=== PATIENT | female | born 1965 | race American Indian/Alaskan Native ===

== ENCOUNTER 2017-10-24 08:32 | Day surgery (SDC) | payer BC ==
[2017-10-23 11:36] VITALS: BMI 21.4
--- NOTE | 2017-10-24 09:32 | CP.SDSHP ---
Same Day Surgery H & P - History Proposed Procedure: colonoscopy - Previous Medical/Surgical History Cardiac: Hypertension Previous Surgical History: hysterectomy - Allergies Allergies: Allergies No Known Allergies Allergy (Verified 10/17/15 20:36) - Physical Exam Vital Signs: Vital Signs 10/24/17 08:49 Temperature 96.6 F L Pulse Rate 83 Respiratory 18 Rate Blood Pressure 142/80 O2 Sat by Pulse 100 Oximetry - Date & Time Date: 10/24/17 Time: 09:31 Short Stay Discharge - Short Stay Discharge Admitting Diagnosis/Reason for Visit: SCREENING Disposition: HOME/ ROUTINE
[2017-10-24] MEDS ORDERED: Propofol 10 mg/ml Inj (20 ML) ONE ×2 (09:35→09:36)
[2017-10-24] MEDS ORDERED: Lidocaine Hydrochloride 5 ML INJ ONE (09:36)
[2017-10-24] MEDS ORDERED: Lactated Ringer's 500 ML IV ONE ×2 (09:37)
[2017-10-24 10:17] VITALS: TEMP 59
[2017-10-24 10:31] VITALS: RESP 17
[2017-10-24 10:42] VITALS: BP 113/70; PULSE 60; O2SAT 100
== END 2017-10-24 10:40 | disposition home or self-care (01) ==
LOC: C.ENDO 08:32
PROVIDERS: ATTEND Colon & Rectal Surgery
DX: Z12.11 Encounter for screening for malignant neoplasm of colon (principal); I10 Essential (primary) hypertension; K64.8 Other hemorrhoids
CPT/HCPCS: 45378; J2704; J7120